=== PATIENT | female | born 1975 | race Caucasian/White ===

== ENCOUNTER 2018-12-02 11:09 | Emergency (ER) | payer OTHER, SELFPAY ==
[2018-12-02 11:16] VITALS: TEMP 97.7; O2SAT 99
[2018-12-02] MEDS ORDERED: Acetaminophen-Codeine 300/30 mg Tab PO STA (11:34)
[2018-12-02] MEDS ORDERED: Acetaminophen-Codeine 300/30 mg Tab ONE (11:41)
--- NOTE | 2018-12-02 11:41 | ED PDOC ---
HPI: Eye Injury/Pain Time Seen by Provider: 12/02/18 11:31 Chief Complaint (Nursing): Eye Problem Chief Complaint (Provider): Right Eye Redness History Per: Patient History/Exam Limitations: no limitations Onset/Duration Of Symptoms: Days (2) Current Symptoms Are (Timing): Still Present Associated Symptoms: denies: Decreased Vision, Itching, Discharge From Eye Additional Complaint(s): 43 year old male presents to the ED for an evaluation of redness to her right eye since Monday. Patient reports she has a headache. She took Motrin without r elief. Otherwise, she denies blurry vision, drainage or foreign body. PMD: No family provider Past Medical History Reviewed: Historical Data, Nursing Documentation, Vital Signs Vital Signs: Last Vital Signs Temp 97.7 F 12/02/18 11:15 Pulse 76 12/02/18 11:15 Resp 14 12/02/18 11:15 BP 120/51 L 12/02/18 11:15 Pulse Ox 99 12/02/18 11:15 - Medical History PMH: No Chronic Diseases - Surgical History Surgical History: Cholecystectomy - Family History Family History: States: Unknown Family Hx - Social History Current smoker - smoking cessation education provided: No Alcohol: Social Drugs: Denies - Home Medications Home Medications: Ambulatory Orders Medication Instructions Recorded Acetaminophen with Codeine 1 tab PO Q6H PRN #10 tab 12/02/18 [Tylenol with Codeine No. 3 300 mg-30 mg] - Allergies Allergies/Adverse Reactions: Allergies Allergy/AdvReac Type Severity Reaction Status Date / Time No Known Allergies Allergy Verified 12/02/18 11:28 Review of Systems ROS Statement: Except As Marked, All Systems Reviewed And Found Negative Constitutional: Negative for: Fever Eyes: Positive for: Redness. Negative for: Vision Change Respiratory: Negative for: Cough Skin: Negative for: Rash Neurological: Positive for: Headache Physical Exam - Reviewed Nursing Documentation Reviewed: Yes Vital Signs Reviewed: Yes - Physical Exam Appears: Positive for: Well, Non-toxic, No Acute Distress Head Exam: Positive for: ATRAUMATIC, NORMAL INSPECTION, NORMOCEPHALIC Skin: Positive for: Normal Color, Warm, Dry. Negative for: Rash Eye Exam: Positive for: Normal appearance, EOMI, PERRL, Other (subconjunctival hemorrhage to right medial eye) ENT: Positive for: Normal ENT Inspection Neck: Positive for: Normal, Painless ROM, Supple. Negative for: Decreased ROM Cardiovascular/Chest: Positive for: Regular Rate, Rhythm. Negative for: Murmur Respiratory: Positive for: Normal Breath Sounds. Negative for: Decreased Breath Sounds, Respiratory Distress Gastrointestinal/Abdominal: Positive for: Normal Exam, Soft. Negative for: Tenderness, Guarding, Rebound Back: Positive for: Normal Inspection Extremity: Positive for: Normal ROM. Negative for: Tenderness, Pedal Edema, Deformity Neurologic/Psych: Positive for: Alert, Oriented (x3). Negative for: Motor/Sensory Deficits - ECG O2 Sat by Pulse Oximetry: 99 (RA) Pulse Ox Interpretation: Normal Medical Decision Making Medical Decision Making: Time: 1134 Initial Plan: Head w/o Contrast CT ED urine Tylenol/Codeine 300mg/30mg Reevaluation Time: 1412 PROCEDURE: CT HEAD WITHOUT CONTRAST FINDINGS: HEMORRHAGE: No intracranial hemorrhage. BRAIN: No mass effect or edema. No atrophy or chronic microvascular ischemic changes. VENTRICLES: Unremarkable. No hydrocephalus. CALVARIUM: Unremarkable. PARANASAL SINUSES: Unremarkable as visualized. No significant inflammatory changes. MASTOID AIR CELLS: Unremarkable as visualized. No inflammatory changes. OTHER FINDINGS: None. IMPRESSION: Intracranial hemorrhage. Scribe Attestation: Documented by Latoya Craig, acting as a scribe for Sammie Finnegan MD. Provider Scribe Attestation: All medical record entries made by the Scribe were at my direction and personally dictated by me. I have reviewed the chart and agree that the record accurately reflects my personal performance of the history, physical exam, medical decision making, and the department course for this patient. I have also personally directed, reviewed, and agree with the discharge instructions and disposition. Disposition - Clinical Impression Clinical Impression: Subconjunctival hemorrhage, Headache - Disposition Referrals: [facility] [Outside] Disposition: Routine/Home Disposition Time: 14:42 Condition: STABLE Prescriptions: Acetaminophen with Codeine [Tylenol with Codeine No. 3 300 mg-30 mg] 1 tab PO Q6H PRN #10 tab PRN Reason: Pain, Severe (8-10) Instructions: Headache, Adult, Subconjunctival Hemorrhage Forms: [facility] (Somali) Print Language: CYMRAES
--- NOTE | 2018-12-02 14:15 | CT ---
Date of service: 2018-12-02 13:50:58 PROCEDURE: CT HEAD WITHOUT CONTRAST. HISTORY: R sided PERALES COMPARISON: No for now prior available for comparison. TECHNIQUE: Axial computed tomography images were obtained through the head/brain without intravenous contrast. Radiation dose: Total exam DLP = 792.71 mGy-cm. This CT exam was performed using one or more of the following dose reduction techniques: Automated exposure control, adjustment of the mA and/or kV according to patient size, and/or use of iterative reconstruction technique. FINDINGS: HEMORRHAGE: No intracranial hemorrhage. BRAIN: No mass effect or edema. No atrophy or chronic microvascular ischemic changes. VENTRICLES: Unremarkable. No hydrocephalus. CALVARIUM: Unremarkable. PARANASAL SINUSES: Unremarkable as visualized. No significant inflammatory changes. MASTOID AIR CELLS: Unremarkable as visualized. No inflammatory changes. OTHER FINDINGS: None. IMPRESSION: Intracranial hemorrhage.
[2018-12-02 18:55] VITALS: BP 118/66; PULSE 79; RESP 18
== END 2018-12-02 15:07 | disposition home or self-care (01) ==
LOC: H.ER 11:09
DX: H11.30 Conjunctival hemorrhage, unspecified eye (principal); R51 Headache

== ENCOUNTER 2018-12-30 17:54 | Emergency (ER) | payer OTHER ==
[2018-12-30 18:25] VITALS: RESP 18
--- NOTE | 2018-12-30 19:40 | ED PDOC ---
HPI: Female Pain Time Seen by Provider: 12/30/18 19:08 Chief Complaint (Nursing): Female Genitourinary Chief Complaint (Provider): vaginal bleed x 1 month History Per: Patient History/Exam Limitations: no limitations Additional Complaint(s): 43 y/o F with hx of uterine fibroids s/p myomectomy in 09/2018 who presents with vaginal beeding x 1 month. STates that it has been on and off for the past month but for the past week she has had a dark discharge and developed pelvic pain and vaginal discomfort so much so that it hurts to sit on the toilet. She is having some dizziness but denies N/V, diarrhea. Past Medical History Reviewed: Historical Data, Nursing Documentation, Vital Signs Vital Signs: Last Vital Signs Temp 98 F 12/30/18 18:22 Pulse 70 12/30/18 18:22 Resp 18 12/30/18 18:22 BP 121/67 12/30/18 18:22 Pulse Ox 100 12/30/18 18:22 - Medical History Other PMH: uterine fibroids - Surgical History Surgical History: Cholecystectomy Other surgeries: uterine myomectomy - Family History Family History: States: Unknown Family Hx - Home Medications Home Medications: Ambulatory Orders Medication Instructions Recorded Acetaminophen with Codeine 1 tab PO Q6H PRN #10 tab 12/02/18 [Tylenol with Codeine No. 3 300 mg-30 mg] - Allergies Allergies/Adverse Reactions: Allergies Allergy/AdvReac Type Severity Reaction Status Date / Time No Known Allergies Allergy Verified 12/30/18 18:22 Review of Systems Constitutional: Negative for: Fever, Chills Cardiovascular: Negative for: Palpitations Gastrointestinal: Negative for: Nausea, Vomiting, Abdominal Pain, Diarrhea Genitourinary Female: Positive for: Vaginal Discharge, Vaginal Bleeding, Pelvic Pain. Negative for: Dysuria, Frequency, Hematuria Neurological: Positive for: Dizziness Physical Exam - Reviewed Nursing Documentation Reviewed: Yes Vital Signs Reviewed: Yes - Physical Exam Appears: Positive for: Uncomfortable Skin: Positive for: Normal Color Gastrointestinal/Abdominal: Positive for: Tenderness (RLQ, LLQ and suprapubic tenderness) Pelvic Exam: Positive for: No Cerv. Motion Tender, Blood (dark blood noted in vaginal vault on speculum exam. Pt exquisitely tender on speculum exam and refused to allow for completion due to pain. 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 Unable to visualize cervix as pt refused to continue due to pain. ). Negative for: No Masses, Lesions Neurologic/Psych: Positive for: Alert, Oriented - Laboratory Results Result Diagrams: 12/30/18 20:19 12/30/18 20:19 - ECG O2 Sat by Pulse Oximetry: 100 Medical Decision Making Medical Decision Making: CBC, CMP, Type and screen Transvaginal U/S URine dip, U/A, urine culture Toradol 30mg IM x 1 20:00: pt endorsed to GABRIELA Guzman pending lab results and Transvaginal U/S. Disposition - Clinical Impression Clinical Impression: Genitourinary Pain - Patient ED Disposition Is Patient to be Admitted: Transfer of Care - Disposition Disposition: Transfer of Care (GABRIELA Guzman) Disposition Time: 20:00 Condition: FAIR Forms: [employer] (Turkmen)
[2018-12-30 20:31] LABS: BASO % 0.3 % (0.0-2.0); EOS # 0.1 K/uL (0.0-0.7); EOS % 1.5 % (0.0-4.0); HEMOGLOBIN 12.6 g/dL (12.0-16.0); LYMPH # 1.7 K/uL (1.0-4.3); LYMPH % 17.5 % (20.0-40.0); MEAN CELL VOLUME 86.9 fl (81.0-99.0); MEAN CORPUSCULAR HEMOGLOBIN 28.6 pg (27.0-31.0); MEAN CORPUSCULAR HGB CONC 32.9 g/dL (33.0-37.0); MEAN PLATELET VOLUME 11.3 fl (7.2-11.7); MONO # 0.8 K/uL (0.0-0.8); MONO % 7.8 % (0.0-10.0); NEUT % 72.9 % (50.0-75.0); NRBC % 0.1 % (0.0-0.0); RBC 4.41 Mil/uL (3.80-5.20); RED CELL DISTRIBUTION WIDTH 14.7 % (11.5-14.5); WHITE BLOOD COUNT 9.6 K/uL (4.8-10.8)
[2018-12-30 20:36] LABS: BLOOD UREA NITROGEN 12 mg/dl (7-17); CALCIUM 9.2 mg/dL (8.4-10.2); GFR NON-AFRICAN AMERICAN > 60
[2018-12-30 20:37] LABS: SQUAMOUS EPITHIAL 5 /hpf (0-5); URINE BILIRUBIN NEGATIVE (NEGATIVE); URINE BLOOD LARGE (NEGATIVE); URINE CLARITY CLOUDY (Clear); URINE COLOR YELLOW (YELLOW); URINE GLUCOSE (UA) NEG (NEGATIVE); URINE LEUKOCYTE ESTERASE LARGE Leu/uL (Negative); URINE PROTEIN 30 mg/dL (NEGATIVE)
[2018-12-30 20:40] LABS: URINE BACTERIA RARE (<OCC)
--- NOTE | 2018-12-30 23:29 | ED PDOC ---
- Laboratory Results Result Diagrams: 12/30/18 20:19 12/30/18 20:19 Lab Results: Urine Color Yellow (YELLOW) 12/30/18 20:19 Urine Clarity Cloudy (Clear) 12/30/18 20:19 Urine pH 6.0 (5.0-8.0) 12/30/18 20:19 Ur Specific [place] 1.025 (1.003-1.030) 12/30/18 20:19 Urine Protein 30 mg/dL (NEGATIVE) 12/30/18 20:19 Urine Glucose (UA) Neg mg/dL (NEGATIVE) 12/30/18 20: Urine Ketones Negative mg/dL (NEGATIVE) 12/30/18 20:19 Urine Blood Large (NEGATIVE) 12/30/18 20: Urine Nitrate Negative (NEGATIVE) 12/30/18 20: Urine Bilirubin Negative (NEGATIVE) 12/30/18 20:19 Urine Urobilinogen 2.0 mg/dL (0.2-1.0) H 12/30/18 20:19 Ur Leukocyte Esterase Large Melissa/uL (Negative) 12/30/18 20:19 Urine RBC (Auto) 1765 /hpf (0-3) H 12/30/18 20:19 Urine Microscopic WBC 372 /hpf (0-5) H 12/30/18 20:19 Ur Squamous Epith Cells 5 /hpf (0-5) 12/30/18 20:19 Urine Bacteria Rare (<OCC) 12/30/18 20:19 - ECG O2 Sat by Pulse Oximetry: 100 Medical Decision Making Medical Decision Making: Pt signed over from Renu Estes at 1999 22:40 US Transvaginal Findings Uterus Measures 8.6 x 4.8 x 6.3 cm. Normal in size. Fundal fibroid measures 2.1 x 1.2 x 1.4 cm, posterior fundal fibroid measures 2.4 x 1.6 x 1.9 cm and left anterior fibroid measures 1.7 x 1.6 x 1.5 cm. Endometrium Measures 9 mm in diameter. Unremarkable. Right ovary Measures 2.6 x 2 x 2.2 cm. No solid mass. Normal flow. Cyst measures 1.4 x 1.3 x 1.3 cm. Left ovary Not visualized. Free fluid No significant free fluid noted. Other Findings None. Impression 1. Uterine fibroids. 2. Right ovarian cyst. 3. Left ovary not visualized. Disposition - Clinical Impression Clinical Impression: Genitourinary Pain, Female genitourinary symptoms, Uterine fibroid - POA Present On Arrival: None - Disposition Referrals: [facility] [Outside] [facility] [Outside] [facility] Disposition: Routine/Home Disposition Time: 01:53 Condition: STABLE Instructions: Uterine Fibroids, Uterine Fibroids (DC), Uterine Fibroid Removal (DC) Forms: [email or web address] (Namibian), [employer] (Frisian) Print Language: JAPANESE
[2018-12-31 00:34] VITALS: BP 128/74; PULSE 58; TEMP 98
[2018-12-31 01:53] VITALS: O2SAT 100
--- NOTE | 2018-12-31 13:27 | US ---
Date of service: 12/30/2018 HISTORY: Pelvic pain. Bleeding 1 month duration. COMPARISON: 05/26/2013 pelvic ultrasound. Solitary anterior uterine fibroid measured 2.9 x 3.2 x 3 cm. TECHNIQUE: Transvaginal only. Real -time technique with 2D, duplex and color Doppler FINDINGS: UTERUS: Measures 4.8 x 6.3 x 8.6 cm. Normal in size, heterogeneous echo characteristics. 1. Fundal fibroid, midline and sub serosal 2.1 x 1.2 cm. 2. Posterior midline fibroid 1.6 x 2.4 cm. 3. Anterior sub serosal fibroid to the left of the midline 1 x 1.6 cm. ENDOMETRIUM: Measures 9.4 mm in diameter. No ultrasound findings to suggest gestational sac, fluid, debris, mass or polyp or other pathologic process within the endometrium. CERVIX: No cervical abnormality identified. RIGHT OVARY: Measures 2 x 2.2 x 2.6 cm. No solid mass. Normal flow. Simple cyst 1.3 x 1.3 x 1.4 cm. LEFT OVARY: Not visible. FREE FLUID: No significant free fluid noted. OTHER FINDINGS: None. IMPRESSION: Heterogeneous uterus containing 3 small uterine fibroids. The fundal fibroid apparent on the current study is diminished in size compared to the prior study. The 2 additional fibroids were not seen on the prior examination. Simple cyst right adnexa. Limitations of the current study: Non visible left adnexa. Concordant findings (preliminary report) provided by [facility].
== END 2018-12-31 00:32 | disposition home or self-care (01) ==
LOC: H.ER 17:54
DX: R10.2 Pelvic and perineal pain (principal); D25.9 Leiomyoma of uterus, unspecified
CPT/HCPCS: 76830; 80048; 81003; 81025; 85025; 86850; 86900; 87086; 96372; 99284; J1885

== ENCOUNTER 2019-01-27 17:23 | Emergency (ER) | payer OTHER ==
[2019-01-27 17:50] VITALS: O2SAT 100
--- NOTE | 2019-01-27 18:02 | ED PDOC ---
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 Priti ent reports the pain is localized, 10/10, and described as sharp. Pain worsens with movement. Patient reports she is now limping as a result of the pain. Patient last took Tylenol at 10am with no relief of symptoms. No history of similar symptoms; no history of knee injury or surgery. Patient has no other complaints and denies fever. PMD: clinic LMP: 1 month ago Past Medical History Reviewed: Historical Data, Nursing Documentation, Vital Signs Vital Signs: Last Vital Signs Temp 98.4 F 01/27/19 17:47 Pulse 62 01/27/19 17:47 Resp 16 01/27/19 17:47 BP 133/79 01/27/19 17:47 Pulse Ox 100 01/27/19 17:47 - Medical History PMH: No Chronic Diseases - Surgical History Surgical History: Cholecystectomy Other surgeries: Tubal Ligation - Family History Family History: States: Unknown Family Hx - Social History Current smoker - smoking cessation education provided: No Alcohol: None Drugs: Denies - Home Medications Home Medications: Ambulatory Orders Medication Instructions Recorded Acetaminophen with Codeine 1 tab PO Q6H PRN #10 tab 12/02/18 [Tylenol with Codeine No. 3 300 mg-30 mg] Acetaminophen [Acetaminophen 8 650 mg PO Q8 PRN #21 tablet.er 01/27/19 Hour] Naproxen 500 mg PO BID PRN #20 tab 01/27/19 - Allergies Allergies/Adverse Reactions: Allergies Allergy/AdvReac Type Severity Reaction Status Date / Time No Known Allergies Allergy Verified 01/27/19 17:47 Review of Systems ROS Statement: Except As Marked, All Systems Reviewed And Found Negative Musculoskeletal: Positive for: Other (knee pain - right) Physical Exam - Reviewed Nursing Documentation Reviewed: Yes Vital Signs Reviewed: Yes - Physical Exam Comments: GENERALIZED APPEARANCE:Patient is awake, alert, oriented x3 in no acute distress. Resting comfortably. SKIN: Warm, dry; (-) cyanosis. NECK: Supple, FROM LOWER EXTREMITY:Diffuse tenderness of right knee with limited ROM secondary to pain (-) effusion (-) erythema (-) warmth (-) skin break. Achilles tendon intact and nontender. Ankle and foot: (-) injury with FROM. (-) calf tenderness. Sensation intact throughout. Strength to lower extremities symmetric. CARDIOVASCULAR: (+) distal pulse. NEUROLOGIC: (+) distal sensation. CHEST AND RESPIRATORY: (-) wheezing; (-) rales, (-) rhonchi; breath sounds equal bilaterally. Respirations nonlabored. HEART AND CARDIOVASCULAR: (-) irregularity - Laboratory Results Urine POC: Negative - ECG O2 Sat by Pulse Oximetry: 100 (RA) Pulse Ox Interpretation: Normal Medical Decision Making Medical Decision Makin Initial Impression: acute knee pain Plan: -Upreg -Toradol 30mg IM -Acetaminophen 650mg PO -Knee XR 3 views -Re-evaluation 1899 XR reviewed, no acute disease as read by Denisse SCHUMACHER. On re-evaluation, patient reports improvement of symptoms. On exam, patient remains AAOx3, in no acute distress. Vitals stable. RICE encouraged. Lab/Diagnostic results d/w the patient in great detail. Diagnosis of acute knee pain/sprain, to consider OA d/w the patient. Based on history, exam and diagnostic results, plan will be for outpatient follow up with PMD/ortho. Patient instructed to follow-up with pmd / referral provided / the clinic in 1- 2 days without fail. Advised to take medication as prescribed. Return to the emergency room at any time for any new or worsening symptoms. Patient states she fully agrees with and understands discharge instructions. States that she agrees with the plan and disposition. Verbalized and repeated discharge instructions and plan. I have given the patient opportunity to ask any additional questions. Disposition - Clinical Impression Clinical Impression: Acute knee pain, Knee sprain, Osteoarthritis - Patient ED Disposition Is Patient to be Admitted: No Counseled Patient/Family Regarding: Studies Performed, Diagnosis, Need For Followup, Rx Given - Disposition Referrals: Adamaris Degroot MD [Staff Provider] - [facility] [Outside] Disposition: Routine/Home Disposition Time: 19:00 Condition: STABLE Additional Instructions: La atencin mdica de emergencia que recibi hoy se dirigi a divya sntomas agudos. Si le recetaron algn medicamento, llnelo y tmelo segn las indicaciones. Los sntomas pueden tardar varios matson en resolverse. Regrese al Departamento de Emergencias si divya sntomas empeoran, no mejoran o si tiene otros problemas. Comunquese con hernandez mdico dentro de 2 matson para venessa nueva evaluacin y rancho un seguimiento o llame a nolan de los mdicos / clnicas a los que pierson sido referido y que figuran en el formulario de Informacin de visita al paciente que se incluye en hernandez [place]. Lleve todos los documentos que le entregaron al momento del [place] junto con todos los medicamentos que est tomando para hernandez visita de seguimiento. Nuestro tratamiento no puede reemplazar la atencin mdica continua por parte de un proveedor de atencin primaria (PCP) fuera del departamento de emergencias. Prescriptions: Acetaminophen [Acetaminophen 8 Hour] 650 mg PO Q8 PRN #21 tablet.er PRN Reason: Pain, Moderate (4-7) Naproxen 500 mg PO BID PRN #20 tab PRN Reason: Pain, Moderate (4-7) Instructions: Osteoarthritis, Knee Sprain (DC), Knee Pain Forms: [facility] (Bulgarian) Print Language: CITIZ[place] OF [place] - POA Present On Arrival: None
[2019-01-27 19:17] VITALS: BP 129/88; PULSE 66; RESP 18; TEMP 98.2
--- NOTE | 2019-01-28 14:25 | RAD ---
Date of service: 01/27/2019 PROCEDURE: Right Knee Radiographs. HISTORY: joint pain COMPARISON: None. FINDINGS: BONES: Normal. No fracture. JOINTS: Normal. No osteoarthritis. JOINT EFFUSION: None. OTHER FINDINGS: None. IMPRESSION: No evidence of acute pathology.
== END 2019-01-27 19:16 | disposition home or self-care (01) ==
LOC: H.ER 17:23
DX: M17.11 Unilateral primary osteoarthritis, right knee (principal); M25.561 Pain in right knee
CPT/HCPCS: 73562; 81025; 96372; 99284; J1885

== ENCOUNTER 2019-02-23 22:30 | Emergency (ER) | payer SELFPAY ==
[2019-02-23 23:02] VITALS: RESP 16
[2019-02-23] MEDS ORDERED: Oxycodone/Acetaminophen 5/325 mg Tab PO ONE (23:21)
[2019-02-23] MEDS ORDERED: Oxycodone/Acetaminophen 5/325 mg Tab ONE (23:28)
--- NOTE | 2019-02-23 23:59 | ED PDOC ---
Lower Extremity Pain/Injury Time Seen by Provider: 02/23/19 23:02 Chief Complaint (Nursing): Lower Extremity Problem/Injury Chief Complaint (Provider): Lower Extremity Problem/Injury History Per: Patient History/Exam Limitations: no limitations Onset/Duration Of Symptoms: Days Current Symptoms Are (Timing): Still Present Additional Complaint(s): 43 y/o female with no significant PMHx presents to the ED for evaluation of body aches. Patient reports symptoms started on January 27 when she was initially evaluated in this ER for complaints of leg pain. Patient states that since then, she has been experiencing constant, chronic pain. Patient notes that since last visit, she saw her PMD who gave her a prescription for pain. Patient states she was given Percocet, Flexeril and Prenisone. Patient reports she medications did not help much but pain has worsened since running out of them yesterday. Patient notes of having leg pain (right > left), lower & upper back pain, neck pain and right shoulder pain. Patient states pain to the right shoulder has been gradually worsening over the last week. Otherwise, patient reports she has not taken any other medications for pain relief since running out of prescription medications yesterday. Patient additionally denies fever, chest pain, numbness and weakness. PMD: no provider Past Medical History Reviewed: Historical Data, Nursing Documentation, Vital Signs Vital Signs: Last Vital Signs Temp 98.8 F 02/23/19 23:00 Pulse 69 02/23/19 23:00 Resp 16 02/23/19 23:00 BP 114/76 02/23/19 23:00 Pulse Ox 98 02/23/19 23:00 - Medical History PMH: No Chronic Diseases - Surgical History Surgical History: Cholecystectomy Other surgeries: tubal ligation - Family History Family History: States: Unknown Family Hx - Immunization History Hx Tetanus Toxoid Vaccination: No Hx Influenza Vaccination: No Hx Pneumococcal Vaccination: No - Home Medications Home Medications: Ambulatory Orders Medication Instructions Recorded Acetaminophen with Codeine 1 tab PO Q6H PRN #10 tab 12/02/18 [Tylenol with Codeine No. 3 300 mg-30 mg] Acetaminophen [Acetaminophen 8 650 mg PO Q8 PRN #21 tablet.er 01/27/19 Hour] Naproxen 500 mg PO BID PRN #20 tab 01/27/19 - Allergies Allergies/Adverse Reactions: Allergies Allergy/AdvReac Type Severity Reaction Status Date / Time No Known Allergies Allergy Verified 01/27/19 17:47 Review of Systems ROS Statement: Except As Marked, All Systems Reviewed And Found Negative Constitutional: Positive for: Other (body aches) Musculoskeletal: Positive for: Neck Pain, Shoulder Pain, Back Pain, Leg Pain Physical Exam - Reviewed Nursing Documentation Reviewed: Yes Vital Signs Reviewed: Yes - Physical Exam Appears: Positive for: No Acute Distress (but obese) Head Exam: Positive for: ATRAUMATIC, NORMOCEPHALIC Skin: Positive for: Normal Color, Warm, Dry Eye Exam: Positive for: Normal appearance, EOMI, PERRL Neck: Positive for: Normal, Painless ROM, Supple Cardiovascular/Chest: Positive for: Regular Rate, Rhythm. Negative for: Murmur Respiratory: Positive for: Normal Breath Sounds. Negative for: Accessory Muscle Use, Respiratory Distress Gastrointestinal/Abdominal: Positive for: Normal Exam, Soft. Negative for: Tenderness Back: Positive for: Other (paraspinal tenderness to palpation to the lower back) Extremity: Positive for: Calf Tenderness (right calf tenderness to palpation). Negative for: Normal ROM (Limited ROM secondary to pain of the right knee. Normal ROM of the right shoulder), Deformity (to the bilateral knees), Swelling (or erythema to the bilateral knees. ) Neurological/Psych: Positive for: Awake, Alert, Oriented (x3). Negative for: Motor/Sensory Deficits - ECG O2 Sat by Pulse Oximetry: 98 (RA) Pulse Ox Interpretation: Normal - Progress Re-evaluation Time: 01:24 Condition: Re-examined, Improved Medical Decision Making Medical Decision Making: Time: 2320 Impression: Body aches, myalgia and arthralgia Differentials include but not limited to arthritis, rheumatoid disease and fibromyalgia Rule out DVT Plan: -- Knee 3 Views RT XR -- Percoet 5/325 mg 1 tab PO -- Toradol 30 mg IM -- US Duplex Lower Extrem Vein Right Time: 0006 -- Right Knee XR as read by me demonstrates no acute findings. Time: 001 EXAM: US for Deep Venous Thrombosis, right Lower Extremity. CLINICAL HISTORY: Rt leg pain x 3 weeks. TECHNIQUE: Real-time ultrasound scan of the veins of the right lower extremity with color Doppler flow, spectral waveform analysis and compression. COMPARISON: None provided. FINDINGS: DEEP VEINS: The common femoral, superficial femoral, and popliteal veins are echolucent and compressible. There is normal color Doppler flow throughout. The visualized calf veins appear patent. SUPERFICIAL VEINS: The visualized greater saphenous vein is patent. SOFT TISSUES: No popliteal fossa cyst or other abnormalities. IMPRESSION: No deep venous thrombosis evident on right lower extremity examination. Electronically signed on Feb 24, 2019 12:13:00 AM EDT by: Fidel Cedillo M.D., M.B.A., Certified By [employer] Trained MRI and CT Specialist Scribe Attestation: Documented by Adarsh Richter, acting as a scribe Marissa Barajas MD. Provider Scribe Attestation: All medical record entries made by the Scribe were at my direction and personally dictated by me. I have reviewed the chart and agree that the record accurately reflects my personal performance of the history, physical exam, medical decision making, and the department course for this patient. I have also personally directed, reviewed, and agree with the discharge instructions and disposition. Disposition - Clinical Impression Clinical Impression: Arthralgia, Leg pain, Myalgia - Patient ED Disposition Is Patient to be Admitted: No Doctor Will See Patient In The: Office Counseled Patient/Family Regarding: Studies Performed, Diagnosis, Need For Followup - Disposition Referrals: Keith Morgan MD [Staff Provider] - Kody Mohr MD [Staff Provider] - Disposition: Routine/Home Disposition Time: 01:25 Condition: GOOD Additional Instructions: NICHOLAS VERMA, thank you for letting us take care of you today. Your provider was Lianne Barajas MD and you were treated for RIGHT LEG PAIN. The emergency medical care you received today was directed at your acute symptoms. If you were prescribed any medication, please fill it and take as directed. It may take several days for your symptoms to resolve. Return to the Emergency Department if your symptoms worsen, do not improve, or if you have any other problems. Please contact your doctor or call one of the physicians/clinics you have been referred to that are listed on the Patient Visit Information form that is included in your discharge packet. Bring any paperwork you were given at discharge with you along with any medications you are taking to your follow up visit. Our treatment cannot replace ongoing medical care by a primary care provider outside of the emergency department. Thank you for allowing the [facility] team to be part of your care today. If you had an X-Ray or CT scan: A Radiologist will review the ED reading if any change in treatment is needed we will contact you. Instructions: Muscle and Bone Pain (DC) Print Language: THAI
[2019-02-24 01:52] VITALS: BP 103/55; PULSE 70; TEMP 98.7; O2SAT 99
--- NOTE | 2019-02-24 08:17 | US ---
Date of service: 02/23/2019 PROCEDURE: Right lower extremity venous duplex Doppler. HISTORY: right lower leg pain COMPARISON: None available. TECHNIQUE: Common femoral, superficial femoral, popliteal and posterior tibial veins were evaluated. Flow was assessed with color Doppler, compressibility, assessment of phasic flow and augmentation response. FINDINGS: COMMON FEMORAL VEIN: Unremarkable. SUPERFICIAL FEMORAL VEIN: Unremarkable. POPLITEAL VEIN: Unremarkable. POSTERIOR TIBIAL VEIN: Unremarkable. OTHER FINDINGS: None. IMPRESSION: No evidence of deep venous thrombosis in the right lower extremity.
--- NOTE | 2019-02-24 08:40 | RAD ---
Date of service: 02/23/2019 PROCEDURE: Right Knee Radiographs. HISTORY: right knee pain COMPARISON: None. TECHNIQUE: 2 views obtained. FINDINGS: BONES: Normal. No fracture. JOINTS: No significant joint space narrowing. Minimal spurring of the tibial spine region. No loose body is seen. No focal osteochondral defect is identified. No periosteal reaction is seen. JOINT EFFUSION: None. OTHER FINDINGS: None. IMPRESSION: Unremarkable two-view examination of the right knee.
== END 2019-02-24 02:01 | disposition home or self-care (01) ==
LOC: H.ER 22:30
DX: M79.606 Pain in leg, unspecified (principal); M79.7 Fibromyalgia; M25.50 Pain in unspecified joint
CPT/HCPCS: 73562; 81025; 93971; 96372; 99284; J1885